=== PATIENT | male | born 1985 | race Caucasian/White ===

== ENCOUNTER 2019-04-29 12:26 | Inpatient (IN) ==
[2019-04-29] MEDS ORDERED: Isovue-370 500 ML BOTTLE IVP ONE (13:10)
[2019-04-29] MEDS: 0.9 % Sodium Chloride 1,000 ML IVC SCH ×3 (13:24→15:36)
[2019-04-29 13:30] LABS: Basophils % 0.1 %; Hematocrit 35.1 % (37.5-50.1); Immature Granulocytes % 0.5 % (0-4); Lymphocytes # 1.8 K/mcL (0.6-4.6); Lymphocytes % 12.2 %; Mean Corpuscular HGB Conc 34.2 g/dL (31.6-35.5); Mean Corpuscular Hemoglobin 30.8 pg (28.0-33.3); Mean Platelet Volume 8.8 fL (9.4-12.4); Monocytes # 1.5 K/mcL (0.0-1.3); Monocytes % 10.2 %; Neutrophils # 11.6 K/mcL (1.6-8.9); Platelet Count 275 K/mcL (140-400); Red Cell Distribution Width 12.9 % (11.5-14.5); White Blood Count 15.1 K/mcL (4.3-11.1)
[2019-04-29 13:36] LABS: INR 1.3; Prothrombin Time 14.3 Seconds (9.4-12.1)
[2019-04-29 13:39] LABS: Activated Partial Thrombo Time 29.2 Seconds (26.0-36.0)
[2019-04-29 13:47] LABS: Bilirubin,Urine Small (Negative); Blood,Urine Trace (Negative); Clarity,Urine Clear (Clear); Color,Urine Dark Yellow (Yellow); Glucose,Urine (UA) Normal (Normal); Ketones,Urine Trace mg/dL (Negative); Leukocyte Esterase,Urine Negative (Negative); Nitrite,Urine Negative (Negative); Protein,Urine 30 mg/dL (Neg-Trace); Specific Gravity,Urine 1.027 (1.010-1.025); Urobilinogen,Urine Normal (Normal)
[2019-04-29 13:50] LABS: Bacteria,Urine None Seen per hpf (None-Few); Hyaline Casts,Urine None Seen per lpf (None-Few); Squamous Epithelial Cell,Urine Few per lpf (None-Few); WBC,Urine 0-3 per hpf (0-3)
[2019-04-29 13:52] LABS: Alanine Aminotransferase 23 Units/L (7-52); Albumin 3.6 g/dL (3.5-5.7); Albumin/Globulin Ratio 1.2 (1.1-2.2); Alkaline Phosphatase 64 Units/L (34-104); Aspartate Amino Transferase 28 Units/L (13-39); BUN/Creatinine Ratio 13 (6-26); Bilirubin,Direct 0.2 mg/dL (0.0-0.2); Bilirubin,Indirect 0.8 mg/dL (0.0-1.2); Blood Urea Nitrogen 10 mg/dL (6-20); Calcium 8.8 mg/dL (8.6-10.3); Carbon Dioxide 25 mEq/L (23-29); Chloride 95 mEq/L (98-107); Globulin 3.1 g/dL (2.4-3.5); Glucose 159 mg/dL (70-105); Magnesium 1.5 mg/dL (1.6-2.6); Osmolality,Calculated 266 (280-300); Phosphorous 1.9 mg/dL (2.7-4.5); Potassium 3.7 mEq/L (3.5-5.1); Sodium 127 mEq/L (136-145); Total Protein 6.7 g/dL (6.4-8.9); eGFR For African Americans > 60 (> 60); eGFR For Non-African Americans > 60 (> 60)
[2019-04-29] MEDS ORDERED: Piperacillin/Tazobactam 3.375 GM in 0.9 % Sodium Chloride Mini Bag 100 ML IVPB ONE (13:54)
[2019-04-29] MEDS ORDERED: Ketorolac 15 MG/ML VIAL IVP ONE (14:52)
[2019-04-29 15:05] LABS: C-Reactive Protein 179 mg/L (Less than 10)
[2019-04-29 15:42] LABS: Creatine Kinase 390 Units/L (30-223)
[2019-04-29] MEDS ORDERED: Gadolinium Contrast Agent (WT Based) IV PRN (16:12)
[2019-04-29] MEDS ORDERED: Naloxone 0.4 MG/ML INJ IVP PRN (16:13)
[2019-04-29] MEDS ORDERED: Ondansetron 4 MG/2 ML VIAL IVP PRN (16:13)
[2019-04-29] MEDS ORDERED: Acetaminophen 325 MG TABLET PO PRN (17:06)
[2019-04-29] MEDS: *HR* Heparin 5,000 UNIT/ML VIAL SQ SCH (18:07)
[2019-04-29] MEDS: Ketorolac 15 MG/ML VIAL IVP PRN (18:07)
[2019-04-29] MEDS: Piperacillin/Tazobactam 3.375 GM in 0.9 % Sodium Chloride Mini Bag 100 ML IVPB SCH (23:25)
[2019-04-30] MEDS: *HR* Heparin 5,000 UNIT/ML VIAL SQ SCH ×2 (05:06→19:07)
[2019-04-30] MEDS: Ketorolac 15 MG/ML VIAL IVP PRN ×3 (05:37→23:43)
[2019-04-30 06:03] LABS: Hematocrit 36.2 % (37.5-50.1); Hemoglobin 12.1 g/dL (12.9-16.9); Mean Corpuscular HGB Conc 33.4 g/dL (31.6-35.5); Mean Corpuscular Hemoglobin 31.3 pg (28.0-33.3); Mean Corpuscular Volume 93.8 fL (83.0-100.0); Mean Platelet Volume 9.3 fL (9.4-12.4); Platelet Count 245 K/mcL (140-400); Red Blood Count 3.86 M/mcL (4.19-5.50); Red Cell Distribution Width 13.2 % (11.5-14.5); White Blood Count 11.2 K/mcL (4.3-11.1)
[2019-04-30 06:23] LABS: BUN/Creatinine Ratio 13 (6-26); Blood Urea Nitrogen 9 mg/dL (6-20); Calcium 8.6 mg/dL (8.6-10.3); Carbon Dioxide 23 mEq/L (23-29); Chloride 102 mEq/L (98-107); Glucose 114 mg/dL (70-105); Magnesium 1.8 mg/dL (1.6-2.6); Osmolality,Calculated 280 (280-300); Phosphorous 1.9 mg/dL (2.7-4.5); Sodium 135 mEq/L (136-145); eGFR For African Americans > 60 (> 60); eGFR For Non-African Americans > 60 (> 60)
[2019-04-30] MEDS: Piperacillin/Tazobactam 3.375 GM in 0.9 % Sodium Chloride Mini Bag 100 ML IVPB SCH ×3 (07:57→23:45)
[2019-04-30] MEDS ORDERED: Aminoglycoside Consult 1 EACH MC ONE (11:01)
[2019-04-30] MEDS ORDERED: *HR* FentaNYL (PF) 100 MCG/2 ML VIAL ONE ×2 (18:32→20:09)
[2019-04-30] MEDS ORDERED: *HR* Propofol 200 MG/20 ML VIAL IVP ONE (18:32)
[2019-04-30] MEDS ORDERED: Lidocaine -MPF 2% 2 ML VIAL ONE (18:33)
[2019-04-30] MEDS ORDERED: Dexamethasone 4 MG/ML VIAL ONE (18:33)
[2019-04-30] MEDS ORDERED: Ondansetron 4 MG/2 ML VIAL ONE (18:33)
[2019-04-30] MEDS ORDERED: *HR* Midazolam HCl 2 MG/2 ML VIAL ONE ×2 (18:33→20:09)
[2019-04-30] MEDS ORDERED: *HR* HYDROmorphone (PF) 1 MG/ML SYRINGE IVP PRN (18:47)
[2019-04-30] MEDS ORDERED: Bupivacaine/EPI 1:200k 0.5%PF 30 ML VIAL ONE (20:05)
[2019-04-30] MEDS ORDERED: *HR* HYDROMORPHONE 2 MG/ML VIAL ONE (20:33)
[2019-04-30] MEDS ORDERED: Gadolinium Contrast Agent (WT Based) IV PRN (22:06)
[2019-04-30] MEDS ORDERED: Acetaminophen 325 MG TABLET PO PRN (22:06)
[2019-04-30] MEDS ORDERED: Ondansetron 4 MG/2 ML VIAL IVP PRN (22:06)
[2019-04-30] MEDS ORDERED: Naloxone 0.4 MG/ML INJ IVP PRN (22:06)
[2019-05-01] MEDS ORDERED: Acetaminophen IV 1,000 MG/100 ML INFUS..BTL IVPB ONE (03:28)
[2019-05-01 04:02] LABS: Hematocrit 35.1 % (37.5-50.1); Hemoglobin 11.6 g/dL (12.9-16.9); Mean Corpuscular Hemoglobin 31.2 pg (28.0-33.3); Mean Corpuscular Volume 94.4 fL (83.0-100.0); Mean Platelet Volume 9.2 fL (9.4-12.4); Platelet Count 231 K/mcL (140-400); Red Blood Count 3.72 M/mcL (4.19-5.50); Red Cell Distribution Width 12.9 % (11.5-14.5); White Blood Count 10.8 K/mcL (4.3-11.1)
[2019-05-01 04:19] LABS: Magnesium 1.9 mg/dL (1.6-2.6); Phosphorous 3.4 mg/dL (2.7-4.5)
[2019-05-01 04:21] LABS: BUN/Creatinine Ratio 17 (6-26); Blood Urea Nitrogen 13 mg/dL (6-20); Calcium 8.6 mg/dL (8.6-10.3); Carbon Dioxide 21 mEq/L (23-29); Chloride 106 mEq/L (98-107); Glucose 125 mg/dL (70-105); Osmolality,Calculated 282 (280-300); Potassium 4.4 mEq/L (3.5-5.1); Sodium 135 mEq/L (136-145); eGFR For African Americans > 60 (> 60); eGFR For Non-African Americans > 60 (> 60)
[2019-05-01] MEDS: *HR* Heparin 5,000 UNIT/ML VIAL SQ SCH ×2 (04:46→17:56)
[2019-05-01] MEDS: Ketorolac 15 MG/ML VIAL IVP PRN ×3 (08:30→20:38)
[2019-05-01] MEDS: Piperacillin/Tazobactam 3.375 GM in 0.9 % Sodium Chloride Mini Bag 100 ML IVPB SCH (08:31)
[2019-05-01] MEDS: Sulfamethoxazole/Trimeth DS 1 EACH TABLET PO SCH (17:55)
[2019-05-01] MEDS: Menthol 9.1 MG LOZENGE PO PRN ×2 (18:26→20:38)
[2019-05-02 02:04] LABS: Hematocrit 32.9 % (37.5-50.1); Mean Corpuscular HGB Conc 33.4 g/dL (31.6-35.5); Mean Corpuscular Hemoglobin 30.9 pg (28.0-33.3); Mean Corpuscular Volume 92.4 fL (83.0-100.0); Mean Platelet Volume 8.9 fL (9.4-12.4); Platelet Count 249 K/mcL (140-400); Red Blood Count 3.56 M/mcL (4.19-5.50); Red Cell Distribution Width 12.9 % (11.5-14.5); White Blood Count 6.2 K/mcL (4.3-11.1)
[2019-05-02 02:22] LABS: BUN/Creatinine Ratio 16 (6-26); Blood Urea Nitrogen 10 mg/dL (6-20); Calcium 8.4 mg/dL (8.6-10.3); Carbon Dioxide 24 mEq/L (23-29); Chloride 107 mEq/L (98-107); Glucose 115 mg/dL (70-105); Osmolality,Calculated 292 (280-300); Potassium 3.7 mEq/L (3.5-5.1); Sodium 141 mEq/L (136-145); eGFR For African Americans > 60 (> 60); eGFR For Non-African Americans > 60 (> 60)
[2019-05-02 02:23] LABS: Magnesium 1.6 mg/dL (1.6-2.6); Phosphorous 3.5 mg/dL (2.7-4.5)
[2019-05-02] MEDS: Sulfamethoxazole/Trimeth DS 1 EACH TABLET PO SCH (05:50)
[2019-05-02] MEDS: *HR* Heparin 5,000 UNIT/ML VIAL SQ SCH (05:53)
[2019-05-02 07:39] VITALS: BP 110/69
[2019-05-02 09:49] LABS: Hematocrit 35.3 % (37.5-50.1); Hemoglobin 11.8 g/dL (12.9-16.9); Mean Corpuscular HGB Conc 33.4 g/dL (31.6-35.5); Mean Corpuscular Hemoglobin 31.1 pg (28.0-33.3); Mean Corpuscular Volume 92.9 fL (83.0-100.0); Mean Platelet Volume 8.9 fL (9.4-12.4); Platelet Count 275 K/mcL (140-400); White Blood Count 5.6 K/mcL (4.3-11.1)
[2019-05-02 10:09] LABS: BUN/Creatinine Ratio 11 (6-26); Blood Urea Nitrogen 8 mg/dL (6-20); Calcium 8.6 mg/dL (8.6-10.3); Carbon Dioxide 24 mEq/L (23-29); Chloride 106 mEq/L (98-107); Glucose 123 mg/dL (70-105); Osmolality,Calculated 288 (280-300); Potassium 3.9 mEq/L (3.5-5.1); Sodium 139 mEq/L (136-145); eGFR For African Americans > 60 (> 60); eGFR For Non-African Americans > 60 (> 60)
[2019-05-02] MEDS ORDERED: FLU Vac QV 19-20 (6Month+)/PF 0.5 ML SYRINGE IM ONE (10:21)
[2019-05-02] MEDS: Ketorolac 15 MG/ML VIAL IVP PRN (10:40)
== END 2019-05-02 11:02 | disposition home or self-care (01) | DRG 364 ==
LOC: EMEROOARM 12:26 → 2ANU 12:26 → SUATTDRO 15:30 → 2ANU 15:57
PROVIDERS: ADMIT Family Medicine; ATTEND Family Medicine

== ENCOUNTER 2020-05-25 01:04 | Observation (INO) ==
[2020-05-25] MEDS ORDERED: Piperacillin/Tazobactam 3.375 GM in 0.9 % Sodium Chloride Mini Bag 100 ML IVPB ONE (01:26)
[2020-05-25 01:58] LABS: Basophils # 0.1 K/mcL (0.0-0.2); Basophils % 0.4 %; Eosinophils # 0.1 K/mcL (0.0-0.6); Eosinophils % 0.5 %; Immature Granulocytes % 0.3 % (0-4); Lymphocytes # 2.8 K/mcL (0.6-4.6); Lymphocytes % 24.4 %; Mean Corpuscular HGB Conc 33.3 g/dL (31.6-35.5); Mean Corpuscular Volume 89.9 fL (83.0-100.0); Mean Platelet Volume 8.8 fL (9.4-12.4); Monocytes # 1.1 K/mcL (0.0-1.3); Monocytes % 9.1 %; Neutrophils # 7.5 K/mcL (1.6-8.9); Platelet Count 354 K/mcL (140-400); Red Blood Count 4.67 M/mcL (4.19-5.50); Red Cell Distribution Width 13.3 % (11.5-14.5); Segmented Neutrophils % 65.3 %; White Blood Count 11.6 K/mcL (4.3-11.1)
[2020-05-25] MEDS ORDERED: 0.9 % Sodium Chloride 250 ML ONE (02:11)
[2020-05-25 02:18] LABS: Alanine Aminotransferase 347 Units/L (7-52); Albumin 4.3 g/dL (3.5-5.7); Albumin/Globulin Ratio 1.2 (1.1-2.2); Alkaline Phosphatase 95 Units/L (34-104); Aspartate Amino Transferase 133 Units/L (13-39); BUN/Creatinine Ratio 27 (6-26); Bilirubin,Direct 0.1 mg/dL (0.0-0.2); Bilirubin,Indirect 0.5 mg/dL (0.0-1.0); Bilirubin,Total 0.6 mg/dL (0.3-1.0); Blood Urea Nitrogen 21 mg/dL (6-20); C-Reactive Protein 40 mg/L (Less than 10); Calcium 9.4 mg/dL (8.6-10.3); Carbon Dioxide 27 mEq/L (23-29); Chloride 95 mEq/L (98-107); Globulin 3.7 g/dL (2.4-3.5); Glucose 114 mg/dL (70-105); Osmolality,Calculated 276 (280-300); Sodium 131 mEq/L (136-145); eGFR For African Americans > 60 (> 60); eGFR For Non-African Americans > 60 (> 60)
[2020-05-25] MEDS ORDERED: Ringers Solution, Lactated 1,000 ML IVC SCH (02:45)
[2020-05-25] MEDS ORDERED: Naloxone 0.4 MG/ML INJ IVP PRN (02:45)
[2020-05-25] MEDS ORDERED: *HR* OxyCODONE Immed Rel 5 MG TABLET PO PRN (02:45)
[2020-05-25] MEDS ORDERED: *HR* HYDROcodone/Acet 5/325 mg TABLET PO PRN (02:45)
[2020-05-25] MEDS ORDERED: Acetaminophen 325 MG TABLET PO PRN (02:45)
[2020-05-25] MEDS ORDERED: Ondansetron 4 MG/2 ML VIAL IVP PRN (02:45)
[2020-05-25] MEDS ORDERED: *HR* Enoxaparin 40 MG/0.4 ML SYRINGE SQ SCH (06:00)
[2020-05-25 07:24] LABS: INR 1.1
[2020-05-25 08:04] LABS: Hepatitis B Surface Antigen Nonreactive (Nonreactive)
[2020-05-25 08:33] LABS: Hepatitis B Core IgM Nonreactive (Nonreactive)
[2020-05-25 08:34] LABS: Hepatitis A Antibody IgM Nonreactive (Nonreactive)
[2020-05-25] MEDS ORDERED: Piperacillin/Tazobactam 3.375 GM in 0.9 % Sodium Chloride Mini Bag 100 ML IVPB SCH (10:00)
[2020-05-25] MEDS ORDERED: 0.9 % Sodium Chloride 1,000 ML IVC SCH (10:00)
[2020-05-25 10:07] VITALS: BP 100/62
[2020-05-25] MEDS ORDERED: FLU Vac QV 20-21 (6Month+)/PF 0.5 ML SYRINGE IM ONE (10:15)
[2020-05-25 10:52] LABS: Hepatitis C Virus Antibody Reactive (Nonreactive)
== END 2020-05-25 12:59 | disposition home or self-care (01) ==
LOC: EMEROOARM 01:04 → 3ANU 01:04
PROVIDERS: ADMIT Student in an Organized Health Care Education/Training Program; ATTEND Student in an Organized Health Care Education/Training Program

== ENCOUNTER 2021-04-02 20:08 | Inpatient (IN) ==
[2021-04-02] MEDS ORDERED: Piperacillin/Tazobactam 3.375 GM in 0.9 % Sodium Chloride Mini Bag 100 ML IVPB ONE (21:09)
[2021-04-02] MEDS ORDERED: Vancomycin 1,500 MG/265 ML IV.SOLN IVPB ONE (21:09)
[2021-04-02] MEDS ORDERED: 0.9 % Sodium Chloride 1,000 ML IVC ONE (21:10)
[2021-04-02] MEDS ORDERED: Isovue-370 500 ML BOTTLE IVP ONE (21:10)
[2021-04-02 21:23] LABS: Basophils % 0.2 %; Eosinophils % 0.1 %; Hematocrit 31.1 % (37.5-50.1); Hemoglobin 10.7 g/dL (12.9-16.9); Immature Granulocytes % 1.6 % (0-4); Lymphocytes # 1.8 K/mcL (0.6-4.6); Lymphocytes % 10.7 %; Mean Corpuscular HGB Conc 34.4 g/dL (31.6-35.5); Mean Corpuscular Hemoglobin 27.9 pg (28.0-33.3); Mean Corpuscular Volume 81.2 fL (83.0-100.0); Monocytes # 1.1 K/mcL (0.0-1.3); Monocytes % 6.7 %; Neutrophils # 13.6 K/mcL (1.6-8.9); Platelet Count 291 K/mcL (140-400); Red Blood Count 3.83 M/mcL (4.19-5.50); Red Cell Distribution Width 14.1 % (11.5-14.5); Segmented Neutrophils % 80.7 %; White Blood Count 16.9 K/mcL (4.3-11.1)
[2021-04-02 21:31] LABS: Bacteria,Urine Few per hpf (None-Few); Bilirubin,Urine Negative (Negative); Blood,Urine Trace (Negative); Clarity,Urine Clear (Clear); Color,Urine Yellow (Yellow); Glucose,Urine (UA) Normal (Normal); Ketones,Urine Negative (Negative); Leukocyte Esterase,Urine Small (Negative); Mucus,Urine Few per lpf (None-Few); Nitrite,Urine Negative (Negative); Protein,Urine 70 mg/dL (Neg-Trace); Specific Gravity,Urine 1.025 (1.010-1.025)
[2021-04-02 21:32] LABS: VBG HCO3 23 mEq/L (21-27); VBG PCO2 33 mmHg (41-51); VBG PH 7.45 pH Units (7.32-7.42); VBG PO2 115 mmHg (25-50)
[2021-04-02 21:37] LABS: INR 1.4; Prothrombin Time 16.4 Seconds (9.4-12.1)
[2021-04-02 21:40] LABS: Activated Partial Thrombo Time 34.4 Seconds (26.0-36.0)
[2021-04-02 22:02] LABS: Alanine Aminotransferase 25 Units/L (7-52); Albumin 2.6 g/dL (3.5-5.7); Albumin/Globulin Ratio 0.5 (1.1-2.2); Alkaline Phosphatase 161 Units/L (34-104); Aspartate Amino Transferase 42 Units/L (13-39); BUN/Creatinine Ratio 27 (6-26); Bilirubin,Direct 0.3 mg/dL (0.0-0.2); Bilirubin,Indirect 0.3 mg/dL (0.0-1.0); Bilirubin,Total 0.6 mg/dL (0.3-1.0); Blood Urea Nitrogen 21 mg/dL (6-20); Calcium 8.4 mg/dL (8.6-10.3); Carbon Dioxide 22 mEq/L (23-29); Chloride 90 mEq/L (98-107); Globulin 4.8 g/dL (2.4-3.5); Glucose 148 mg/dL (70-105); Magnesium 1.9 mg/dL (1.6-2.6); Osmolality,Calculated 262 (280-300); Phosphorous 2.2 mg/dL (2.7-4.5); Potassium 3.5 mEq/L (3.5-5.1); Sodium 123 mEq/L (136-145); Total Protein 7.4 g/dL (6.4-8.9); Troponin I 0.18 ng/mL (< 0.04); eGFR For African Americans > 60 (> 60); eGFR For Non-African Americans > 60 (> 60)
[2021-04-02 22:21] LABS: Adenovirus Not Detected (Not Detect); Bordetella Pertussis Not Detected (Not Detect); Chlamydophila pneumoniae Not Detected (Not Detect); Coronavirus 229E Not Detected (Not Detect); Coronavirus HKU1 Not Detected (Not Detect); Coronavirus NL63 Not Detected (Not Detect); Coronavirus OC43 Not Detected (Not Detect); Human Metapneumovirus Not Detected (Not Detect); Human Rhinovirus/Enterovirus Not Detected (Not Detect); Influenza A Subtype 2009 H1 Not Detected (Not Detect); Influenza B Not Detected (Not Detect); Mycoplasma pneumoniae Not Detected (Not Detect); Parainfluenza Virus 1 Not Detected (Not Detect); Parainfluenza Virus 2 Not Detected (Not Detect); Parainfluenza Virus 3 Not Detected (Not Detect); Parainfluenza Virus 4 Not Detected (Not Detect); Respiratory Syncytial Virus Not Detected (Not Detect); SARS-CoV-2 Not Detected (Not Detect)
[2021-04-02 22:25] LABS: Platelet Estimate Normal (Normal)
[2021-04-02] MEDS ORDERED: Morphine Sulfate 2 MG/ML SYRINGE IVP ONE (22:51)
[2021-04-02] MEDS ORDERED: 0.9 % Sodium Chloride 500 ML IVC ONE (22:53)
[2021-04-02] MEDS ORDERED: *HR* Heparin 5,000 UNIT/ML VIAL IVP PRN (23:11)
[2021-04-02] MEDS ORDERED: *HR* Heparin 5,000 UNIT/ML VIAL IVP ONE (23:11)
[2021-04-02 23:56] LABS: Heparin anti-factor XA UFH < 0.04 IU/mL (0.30-0.70); INR 1.4; Prothrombin Time 16.2 Seconds (9.4-12.1)
[2021-04-03 00:05] LABS: Hematocrit 29.6 % (37.5-50.1); Mean Corpuscular HGB Conc 33.8 g/dL (31.6-35.5); Mean Corpuscular Hemoglobin 27.4 pg (28.0-33.3); Mean Corpuscular Volume 81.1 fL (83.0-100.0); Mean Platelet Volume 9.9 fL (9.4-12.4); Platelet Count 285 K/mcL (140-400); Red Blood Count 3.65 M/mcL (4.19-5.50); Red Cell Distribution Width 14.3 % (11.5-14.5); White Blood Count 18.9 K/mcL (4.3-11.1)
[2021-04-03] MEDS: Heparin 25,000UNIT/250ML 1/2NS 25,000 UNIT/250 ML IV.SOLN IVC SCH ×2 (00:18→23:36)
[2021-04-03] MEDS ORDERED: Perflutren Lipid Microsphere 1.3 ML in 0.9 % Sodium Chloride 8.7 ML IVP PRN (00:27)
[2021-04-03] MEDS ORDERED: 0.9 % Sodium Chloride 1,000 ML IVC ONE (00:31)
[2021-04-03] MEDS ORDERED: Naloxone 0.4 MG/ML INJ IVP PRN (00:31)
[2021-04-03] MEDS ORDERED: Dextrose Gel 15 GM/37.5 ML TUBE PO PRN ×2 (00:37)
[2021-04-03] MEDS ORDERED: *HR* Dextrose 50 % in Water (Vial) 50 ML VIAL IVP PRN (00:37)
[2021-04-03] MEDS ORDERED: D5% in Water 1,000 ML IVC PRN (00:37)
[2021-04-03 01:10] LABS: Amphetamine Screen,Urine Positive ng/mL (Cutoff=1000); Barbiturate Screen,Urine Negative ng/mL (Cutoff=200); Benzodiazepines Screen,Urine Negative ng/mL (Cutoff=200); Cannabinoid Screen,Urine Negative ng/mL (Cutoff = 50); Cocaine Screen,Urine Negative ng/mL (Cutoff= 300); Opiate Screen,Urine Positive ng/mL (Cutoff=300); Phencyclidine Screen,Urine Negative ng/mL (Cutoff=25)
[2021-04-03 02:29] LABS: BUN/Creatinine Ratio 25 (6-26); Blood Urea Nitrogen 18 mg/dL (6-20); Calcium 7.7 mg/dL (8.6-10.3); Carbon Dioxide 24 mEq/L (23-29); Chloride 95 mEq/L (98-107); Glucose 124 mg/dL (70-105); Magnesium 1.7 mg/dL (1.6-2.6); Osmolality,Calculated 267 (280-300); Phosphorous 3.7 mg/dL (2.7-4.5); Potassium 3.4 mEq/L (3.5-5.1); Sodium 127 mEq/L (136-145); Troponin I 0.05 ng/mL (< 0.04); eGFR For African Americans > 60 (> 60); eGFR For Non-African Americans > 60 (> 60)
[2021-04-03 03:28] LABS: Creatine Kinase 18 Units/L (30-223)
[2021-04-03 04:59] LABS: Hematocrit 31.6 % (37.5-50.1); Hemoglobin 10.8 g/dL (12.9-16.9); Mean Corpuscular HGB Conc 34.2 g/dL (31.6-35.5); Mean Corpuscular Volume 81.9 fL (83.0-100.0); Mean Platelet Volume 9.8 fL (9.4-12.4); Platelet Count 263 K/mcL (140-400); Red Blood Count 3.86 M/mcL (4.19-5.50); Red Cell Distribution Width 14.6 % (11.5-14.5); White Blood Count 17.8 K/mcL (4.3-11.1)
[2021-04-03 06:05] LABS: Lymphocytes # 2.3 K/mcL (0.6-4.6); Monocytes # 1.1 K/mcL (0.0-1.3); Neutrophils # 13.9 K/mcL (1.6-8.9); Platelet Estimate Normal (Normal); Reactive Lymphocytes Present (Not Present); Toxic Granulation Present (Not Present)
[2021-04-03] MEDS: Insulin LISPRO 300 UNITS/3 ML VIAL SUBQ SCH ×3 (06:16→18:19)
[2021-04-03] MEDS ORDERED: Piperacillin/Tazobactam 3.375 GM in 0.9 % Sodium Chloride Mini Bag 100 ML IVPB SCH (08:00)
[2021-04-03] MEDS: Vancomycin 1,250 MG/262.5 ML IV.SOLN IVPB SCH ×2 (09:33→20:57)
[2021-04-03] MEDS: *HR* Heparin 5,000 UNIT/ML VIAL IVP PRN ×2 (09:33→18:29)
[2021-04-03] MEDS: Calcium Gluconate 1gm/50mL 1 GM/50 ML BAG IVPB SCH ×2 (09:33→10:33)
[2021-04-03] MEDS: *HR* OxyCODONE Immed Rel 5 MG TABLET PO PRN ×2 (10:00→20:31)
[2021-04-03 10:40] LABS: Acinetobacter baumannii by PCR Not Detected (Not Detect); Candida albicans by PCR Not Detected (Not Detect); Candida glabrata by PCR Not Detected (Not Detect); Candida krusei by PCR Not Detected (Not Detect); Candida parapsilosis by PCR Not Detected (Not Detect); Candida tropicalis by PCR Not Detected (Not Detect); Enterobacter cloacae Cmplx PCR Not Detected (Not Detect); Enterobacteriaceae by PCR Not Detected (Not Detect); Enterococcus by PCR Not Detected (Not Detect); Escherichia coli by PCR Not Detected (Not Detect); Klebsiella oxytoca by PCR Not Detected (Not Detect); Klebsiella pneumoniae by PCR Not Detected (Not Detect); Proteus by PCR Not Detected (Not Detect); Pseudomonas aeruginosa by PCR Not Detected (Not Detect); Serratia marcescens by PCR Not Detected (Not Detect); Staphylococcus aureus by PCR DETECTED (Not Detect); Streptococcus agalactiae(B)PCR Not Detected (Not Detect); Streptococcus by PCR Not Detected (Not Detect); Streptococcus pneumoniae PCR Not Detected (Not Detect); Streptococcus pyogenes (A) PCR Not Detected (Not Detect); mecA Methicillin-Resist Gene DETECTED (Not Detect)
[2021-04-03] MEDS: Acetaminophen 325 MG TABLET PO PRN (12:06)
[2021-04-03] MEDS: 0.9 % Sodium Chloride 1,000 ML IVC SCH (14:26)
[2021-04-03] MEDS: *HR* HYDROcodone/Acet 5/325 mg TABLET PO PRN (22:53)
[2021-04-04] MEDS: Insulin LISPRO 300 UNITS/3 ML VIAL SUBQ SCH ×4 (00:43→18:15)
[2021-04-04] MEDS: *HR* LORazepam 2 MG/ML VIAL IVP PRN ×4 (00:59→19:38)
[2021-04-04 01:50] LABS: Hematocrit 27.4 % (37.5-50.1); Hemoglobin 9.5 g/dL (12.9-16.9); Mean Corpuscular HGB Conc 34.7 g/dL (31.6-35.5); Mean Corpuscular Hemoglobin 28.4 pg (28.0-33.3); Mean Corpuscular Volume 81.8 fL (83.0-100.0); Mean Platelet Volume 9.4 fL (9.4-12.4); Platelet Count 222 K/mcL (140-400); Red Blood Count 3.35 M/mcL (4.19-5.50); Red Cell Distribution Width 14.6 % (11.5-14.5); White Blood Count 19.4 K/mcL (4.3-11.1)
[2021-04-04 01:51] LABS: BUN/Creatinine Ratio 19 (6-26); Blood Urea Nitrogen 15 mg/dL (6-20); Calcium 7.4 mg/dL (8.6-10.3); Carbon Dioxide 21 mEq/L (23-29); Chloride 98 mEq/L (98-107); Glucose 121 mg/dL (70-105); Osmolality,Calculated 268 (280-300); Potassium 3.2 mEq/L (3.5-5.1); Sodium 128 mEq/L (136-145); eGFR For African Americans > 60 (> 60); eGFR For Non-African Americans > 60 (> 60)
[2021-04-04 02:40] LABS: Lymphocytes # 1.9 K/mcL (0.6-4.6); Monocytes # 1.6 K/mcL (0.0-1.3); Neutrophils # 15.9 K/mcL (1.6-8.9); Platelet Estimate Normal (Normal); Reactive Lymphocytes Present (Not Present)
[2021-04-04] MEDS: 0.9 % Sodium Chloride 1,000 ML IVC SCH ×2 (03:37→17:15)
[2021-04-04] MEDS: *HR* OxyCODONE Immed Rel 5 MG TABLET PO PRN ×2 (03:37→22:14)
[2021-04-04] MEDS: *HR* Heparin 5,000 UNIT/ML VIAL IVP PRN ×2 (03:48→13:28)
[2021-04-04] MEDS ORDERED: Potassium Chloride 40 MEQ, Lidocaine 1% 2 ML in 0.9 % Sodium Chloride 500 ML IVPB ONE (07:23)
[2021-04-04] MEDS: Vancomycin 1,250 MG/262.5 ML IV.SOLN IVPB SCH (11:21)
[2021-04-04] MEDS: Vancomycin 1,500 MG/265 ML IV.SOLN IVPB SCH ×2 (11:49→18:26)
[2021-04-04] MEDS: Acetaminophen 325 MG TABLET PO PRN (15:28)
[2021-04-04] MEDS: Ringers Solution, Lactated 1,000 ML IVC SCH (18:06)
[2021-04-04] MEDS: *HR* Enoxaparin 80 MG/0.8 ML SYRINGE SQ SCH (18:07)
[2021-04-05] MEDS: Insulin LISPRO 300 UNITS/3 ML VIAL SUBQ SCH ×5 (00:04→21:13)
[2021-04-05 00:55] LABS: Hematocrit 28.5 % (37.5-50.1); Hemoglobin 9.5 g/dL (12.9-16.9); Mean Corpuscular HGB Conc 33.3 g/dL (31.6-35.5); Mean Corpuscular Hemoglobin 27.6 pg (28.0-33.3); Mean Corpuscular Volume 82.8 fL (83.0-100.0); Mean Platelet Volume 9.3 fL (9.4-12.4); Platelet Count 208 K/mcL (140-400); Red Blood Count 3.44 M/mcL (4.19-5.50); White Blood Count 16.7 K/mcL (4.3-11.1)
[2021-04-05] MEDS: *HR* LORazepam 2 MG/ML VIAL IVP PRN ×5 (01:10→22:55)
[2021-04-05 01:11] LABS: Alanine Aminotransferase 23 Units/L (7-52); Albumin 1.9 g/dL (3.5-5.7); Albumin/Globulin Ratio 0.4 (1.1-2.2); Alkaline Phosphatase 73 Units/L (34-104); Aspartate Amino Transferase 36 Units/L (13-39); BUN/Creatinine Ratio 21 (6-26); Bilirubin,Total 0.6 mg/dL (0.3-1.0); Blood Urea Nitrogen 17 mg/dL (6-20); Calcium 7.4 mg/dL (8.6-10.3); Carbon Dioxide 20 mEq/L (23-29); Chloride 103 mEq/L (98-107); Globulin 4.3 g/dL (2.4-3.5); Glucose 94 mg/dL (70-105); Osmolality,Calculated 271 (280-300); Potassium 3.6 mEq/L (3.5-5.1); Sodium 130 mEq/L (136-145); Total Protein 6.2 g/dL (6.4-8.9); eGFR For African Americans > 60 (> 60); eGFR For Non-African Americans > 60 (> 60)
[2021-04-05] MEDS: Ringers Solution, Lactated 1,000 ML IVC SCH ×3 (01:11→19:17)
[2021-04-05 01:14] LABS: Lymphocytes # 0.7 K/mcL (0.6-4.6)
[2021-04-05 01:15] LABS: Platelet Estimate Normal (Normal)
[2021-04-05] MEDS: Vancomycin 1,500 MG/265 ML IV.SOLN IVPB SCH ×3 (03:34→18:36)
[2021-04-05] MEDS: *HR* Enoxaparin 80 MG/0.8 ML SYRINGE SQ SCH ×2 (05:23→18:38)
[2021-04-05] MEDS: Ondansetron 4 MG/2 ML VIAL IVP PRN ×2 (14:14→22:55)
[2021-04-05] MEDS: *HR* HYDROcodone/Acet 5/325 mg TABLET PO PRN (18:37)
[2021-04-05 19:22] LABS: Adenovirus F 40/41 PCR Not detected (Not detect); Astrovirus PCR Not detected (Not detect); C.difficile Toxin A/B Gene PCR Not detected (Not detect); Campylobacter by PCR Not detected (Not detect); Cryptosporidium by PCR Not detected (Not detect); Cyclospora cayetanensis PCR Not detected (Not detect); E. coli O157 by PCR Not detected (Not detect); Entamoeba histolytica PCR Not detected (Not detect); Enteroaggregative E.coli(EAEC) Not detected (Not detect); Enteropathogenic E.coli(EPEC) DETECTED (Not detect); Enterotoxigenic E.coli (ETEC) Not detected (Not detect); Giardia lamblia PCR Not detected (Not detect); Norovirus GI/GII PCR Not detected (Not detect); Plesiomonas shigelloides PCR Not detected (Not detect); Rotavirus A PCR Not detected (Not detect); Salmonella PCR Not detected (Not detect); Sapovirus PCR Not detected (Not detect); Shig/EnteroinvasiveE coli EIEC Not detected (Not detect); Shigalike tox-prod E coli STEC Not detected (Not detect); Vibrio PCR Not detected (Not detect); Vibrio cholerae PCR Not detected (Not detect); Yersinia enterocolitica PCR Not detected (Not detect)
[2021-04-05] MEDS: *HR* OxyCODONE Immed Rel 5 MG TABLET PO PRN (22:55)
[2021-04-06 02:43] LABS: Hematocrit 29.4 % (37.5-50.1); Hemoglobin 9.9 g/dL (12.9-16.9); Mean Corpuscular HGB Conc 33.7 g/dL (31.6-35.5); Mean Corpuscular Volume 83.3 fL (83.0-100.0); Mean Platelet Volume 9.3 fL (9.4-12.4); Platelet Count 284 K/mcL (140-400); Red Blood Count 3.53 M/mcL (4.19-5.50); Red Cell Distribution Width 15.2 % (11.5-14.5)
[2021-04-06] MEDS: *HR* OxyCODONE Immed Rel 5 MG TABLET PO PRN ×4 (03:00→20:59)
[2021-04-06] MEDS: *HR* LORazepam 2 MG/ML VIAL IVP PRN ×2 (03:00→07:35)
[2021-04-06 03:05] LABS: Alanine Aminotransferase 16 Units/L (7-52); Albumin 1.8 g/dL (3.5-5.7); Albumin/Globulin Ratio 0.4 (1.1-2.2); Alkaline Phosphatase 63 Units/L (34-104); Aspartate Amino Transferase 19 Units/L (13-39); BUN/Creatinine Ratio 23 (6-26); Bilirubin,Total 0.5 mg/dL (0.3-1.0); Blood Urea Nitrogen 27 mg/dL (6-20); Calcium 7.4 mg/dL (8.6-10.3); Carbon Dioxide 19 mEq/L (23-29); Chloride 103 mEq/L (98-107); Globulin 4.3 g/dL (2.4-3.5); Glucose 121 mg/dL (70-105); Osmolality,Calculated 276 (280-300); Potassium 3.5 mEq/L (3.5-5.1); Sodium 130 mEq/L (136-145); Total Protein 6.1 g/dL (6.4-8.9); eGFR For African Americans > 60 (> 60); eGFR For Non-African Americans > 60 (> 60)
[2021-04-06] MEDS: Vancomycin 1,500 MG/265 ML IV.SOLN IVPB SCH (03:18)
[2021-04-06] MEDS: Ringers Solution, Lactated 1,000 ML IVC SCH ×3 (03:19→18:04)
[2021-04-06 03:29] LABS: Lymphocytes # 2.8 K/mcL (0.6-4.6); Monocytes # 0.4 K/mcL (0.0-1.3); Neutrophils # 15.6 K/mcL (1.6-8.9)
[2021-04-06 03:30] LABS: Platelet Estimate Normal (Normal); Reactive Lymphocytes Present (Not Present)
[2021-04-06] MEDS: *HR* Enoxaparin 80 MG/0.8 ML SYRINGE SQ SCH ×2 (06:00→17:45)
[2021-04-06] MEDS: Ondansetron 4 MG/2 ML VIAL IVP PRN ×2 (07:35→20:11)
[2021-04-06] MEDS ORDERED: cloNIDine HCL 0.1 MG TABLET PO ONE (08:43)
[2021-04-06] MEDS: Insulin LISPRO 300 UNITS/3 ML VIAL SUBQ SCH ×4 (08:45→20:26)
[2021-04-06] MEDS: diazePAM 10 MG/2 ML SYRINGE IVP PRN ×2 (11:48→17:44)
[2021-04-06] MEDS: *HR* HYDROcodone/Acet 5/325 mg TABLET PO PRN (17:44)
[2021-04-06 20:12] VITALS: O2SAT 97
[2021-04-06] MEDS ORDERED: *HR* LORazepam 2 MG/ML VIAL IVP ONE (20:51)
[2021-04-06] MEDS ORDERED: Metoclopramide 10 MG/2 ML VIAL IVP ONE (23:06)
[2021-04-07] MEDS: *HR* OxyCODONE Immed Rel 5 MG TABLET PO PRN (03:11)
[2021-04-07] MEDS: diazePAM 10 MG/2 ML SYRINGE IVP PRN (03:11)
[2021-04-07] MEDS: *HR* Enoxaparin 80 MG/0.8 ML SYRINGE SQ SCH (05:47)
[2021-04-07] MEDS ORDERED: Vancomycin 1,250 MG/262.5 ML IV.SOLN IVPB SCH (06:00)
[2021-04-07 07:11] VITALS: BP 115/81; PULSE 93; TEMP 98.5
[2021-04-07] MEDS: Insulin LISPRO 300 UNITS/3 ML VIAL SUBQ SCH (07:27)
== END 2021-04-07 08:06 | disposition short-term general hospital (02) | DRG 720 ==
LOC: EMEROOARM 20:08 → 2ANU 20:08 → SUATTDRO 23:42 → OBSVTOIN 23:42 → 2NNU 23:51 → 2ANU 04-03 17:51
PROVIDERS: ADMIT Student in an Organized Health Care Education/Training Program; ATTEND Family Medicine